=== PATIENT | female | born 2000 | race Caucasian/White ===

== ENCOUNTER 2018-09-10 20:12 | Emergency (ER) | payer SELFPAY ==
[2018-09-10 20:58] VITALS: BP 108/62; PULSE 86; RESP 16; TEMP 98.3; O2SAT 100
--- NOTE | 2018-09-10 21:35 | C.PDOC ---
History Of Present Illness 18 y/o female presents to the ED for evaluation of headache and chest pain after argument with her ex-fiance today. Patient states she has been feeling anxious for around 2 months due to stress at work and home. Patient states her symptoms worsened following the argument today. She states she became very emotional and more anxious than usual. At present time, she states she is feeling better. Patient is no longer having chest pain but does have headache, which she rates 4/10. Patient denies any diagnosed anxiety, depression or fever chills shortness of breath, nausea, vomiting, dizziness, weakness, numbness and tingling. Chief Complaint (Nursing): Anxiety History Per: Patient History/Exam Limitations: no limitations Onset/Duration Of Symptoms: Hrs Current Symptoms Are (Timing): Still Present Associated Symptoms: Anxiety Past Medical History Reviewed: Historical Data, Nursing Documentation, Vital Signs Vital Signs: Last Vital Signs Temp 98.3 F 09/10/18 20:54 Pulse 86 09/10/18 20:54 Resp 16 09/10/18 20:54 BP 108/62 09/10/18 20:54 Pulse Ox 100 09/10/18 20:54 Primary Care Provider: FAMILY PROVIDER,NO - Medical History PMH: No Chronic Diseases Surgical History: No Surg Hx Family History: States: Unknown Family Hx - Social History Hx Alcohol Use: No Hx Substance Use: No - Immunization History Hx Tetanus Toxoid Vaccination: No Hx Influenza Vaccination: Yes Hx Pneumococcal Vaccination: No Review Of Systems Constitutional: Negative for: Fever, Chills Cardiovascular: Positive for: Chest Pain Gastrointestinal: Negative for: Nausea, Vomiting, Diarrhea Neurological: Positive for: Headache. Negative for: Weakness, Numbness Physical Exam - Physical Exam Appears: Non-toxic, No Acute Distress Skin: Normal Color, Warm, Dry Head: Atraumatic, Normacephalic Eye(s): bilateral: Normal Inspection Oral Mucosa: Moist Neck: Supple Chest: Symmetrical, No Deformity, No Tenderness Cardiovascular: Rhythm Regular, No Murmur Respiratory: Normal Breath Sounds, No Rales, No Rhonchi, No Wheezing Extremity: Normal ROM, Capillary Refill (less than 2 seconds ) Neurological/Psych: Oriented x3, Normal Speech, Normal Cognition ED Course And Treatment ECG: Interpreted By Me ECG Rhythm: Sinus Rhythm ECG Interpretation: Normal O2 Sat by Pulse Oximetry: 100 (on RA) Pulse Ox Interpretation: Normal Medical Decision Making Medical Decision Making: Progress: Tylenol PO given for headache patient no longer has chest pain she is resting comfortably referred to [facility] counselor and resource center patient stable for discharge Disposition Counseled Patient/Family Regarding: Studies Performed, Diagnosis, Need For Followup, Rx Given - Disposition Referrals: [facility] [Outside] Disposition: HOME/ ROUTINE Disposition Time: 21:53 Condition: IMPROVED Additional Instructions: Follow up with [facility] for further assessment of anxiety Tylenol as needed for headache Return to ED if symptoms worsen Prescriptions: Acetaminophen [Tylenol] 325 mg PO Q6 PRN #30 capsule PRN Reason: Pain, Moderate (4-7) Instructions: Anxiety, Adult (DC) Forms: NERITES ([employer]) - Clinical Impression Clinical Impression: Anxiety - PA / INSURANCE SERVICE REPRESENTATIVE / Resident Statement MD/DO has reviewed & agrees with the documentation as recorded. - Scribe Statement The provider has reviewed the documentation as recorded by the Scribe (Vivi Rodriguez) All medical record entries made by the Scribe were at my direction and p ersonally dictated by me. I have reviewed the chart and agree that the record accurately reflects my personal performance of the history, physical exam, medical decision making, and the department course for this patient. I have also personally directed, reviewed, and agree with the discharge instructions and disposition.
== END 2018-09-10 21:59 | disposition home or self-care (01) ==
LOC: C.ER 20:12
DX: F41.9 Anxiety disorder, unspecified (principal)